=== PATIENT | male | born 1935 | race Caucasian/White ===

== ENCOUNTER 2021-11-30 13:23 | Inpatient (IN) | payer MEDICARE, OTHER ==
[~2021-11-30] VITALS: Ht 177.8 cm; Wt 79.4 kg
[~2021-11-30 13:23] MED LIST: ACETAMINOP650 MG/201 PEG; ARTIFICIAL TEAR15 ML OD; BASAGLAR K100 UNIT/1 SC; EXELON1 EAC2 TD; GLUCERNA 1.5 C237 ML PEG; LACTULOSE20 GM/30 M PO; LEVALBUTER1.25 MG/3 INH; LEVOFLOXACIN250 MG PEG; MAGNESIUM CITR296 ML PO; METOPROLOL TART25 MG PEG; MILK OF MA2400 MG/10 PO; MIRALAX17 GM PO; MULTIVITAMIN WI15 MG PEG; NOVOLOG100 UNITS1 SC; PREVACID30 M1 PEG; ROBITUSSIN COU118 M4 PEG
[2021-11-30] MEDS ORDERED: SODIUM CHLORIDE 0.9% 1000ML 1,000 ML IV STA (13:35)
[2021-11-30] MEDS ORDERED: ONDANSETRON HCL INJ 2MG/ML 2ML 2 MG/ML VIAL IV NR (13:35)
[2021-11-30 13:56] LABS: BASOPHILS # (AUTO) 0.1 (0.0-0.1); BASOPHILS % 0.6 % (0.0-1.0); EOSINOPHILS % 0.1 % (0.0-6.0); HEMATOCRIT 42.4 % (38.2-49.6); HEMOGLOBIN 12.8 g/dL (14.0-18.0); LYMPHOCYTES # (AUTO) 1.2 (1.0-3.2); LYMPHOCYTES % 9.8 % (18.0-39.1); MEAN CORPUSCULAR HEMOGLOBIN 27.1 pg (28-32); MEAN CORPUSCULAR HGB CONC 30.2 g/dL (31-35); MEAN CORPUSCULAR VOLUME 89.6 fL (81-99); MONOCYTES # (AUTO) 1.4 (0.2-0.8); MONOCYTES % 11.8 % (4.4-11.3); NEUTROPHILS % 76.1 % (38.7-80.0); PLATELET COUNT 282 x10e3/uL (140-360); RED BLOOD COUNT 4.73 x10e6/uL (4.3-5.7); RED CELL DISTRIBUTION WIDTH 14.5 % (11.7-14.4)
[2021-11-30] MEDS ORDERED: PIPERACILLIN/TAZOBACTAM 3.375 GM in SODIUM CHLORIDE 0.9% 50ML 50 ML IV STA (14:03)
[2021-11-30 14:10] LABS: INR 1.15; PROTHROMBIN TIME 15.5 seconds (11.9-14.5)
[2021-11-30] MEDS ORDERED: ACETAMINOPHEN 650 MG SUPP PR ONE ×2 (14:13→14:15)
[2021-11-30] MEDS ORDERED: ACETAMINOPHEN 325 MG SUPP PR ONE (14:15)
[2021-11-30 14:17] LABS: ALBUMIN/GLOBULIN RATIO 0.7 (0.8-2.0); ANION GAP 15.6 mmol/L (8-16); CALCIUM 9.3 mg/dL (8.4-10.2); CREATININE, SERUM 0.88 mg/dL (0.72-1.25); POTASSIUM 4.6 mmol/L (3.5-5.1)
[2021-11-30] MEDS ORDERED: SODIUM CHLORIDE 0.9% 1000ML 1,000 ML IV SCH (14:30)
[2021-11-30 14:32] LABS: CLARITY,URINE SL CLOUDY (CLEAR); COLOR,URINE STRAW (YELLOW); KETONES,URINE TRACE (NEGATIVE); LEUKOCYTE ESTERASE ,URINE MODERATE (NEGATIVE); NITRITE,URINE POSITIVE (NEGATIVE); PROTEIN,URINE DIPSTICK 2+ (NEGATIVE); URINE UROBILINOGEN 1 mg/dL (0.2 - 1)
[2021-11-30 14:38] LABS: B-TYPE NATRIURETIC PEPTIDE2 236.9 pg/mL (0-100)
[2021-11-30 14:40] LABS: CREATINE KINASE MB 0.7 ng/mL (0-5.0)
[2021-11-30 14:44] LABS: BACTERIA,URINE MODERATE /HPF; EPITHELIAL CELLS,URINE FEW /LPF; WBC,URINE (MAN) 21-50 /HPF (0-5)
[2021-11-30] MEDS ORDERED: IBUPROFEN 100 MG/5 ML SUSP PO ONE (15:15)
[2021-11-30] MEDS: SODIUM CHLORIDE 0.9% 1000ML 1,000 ML IV SCH (18:17)
[2021-11-30 20:56] VITALS: BP 92/60
[2021-11-30 21:00] VITALS: BP 92/60
[2021-11-30 21:27] LABS: CREATINE KINASE MB 2.9 ng/mL (0-5.0)
[2021-11-30] MEDS ORDERED: WATER (23:31)
[2021-12-01] VITALS (9 sets, daily range): BP systolic 96–124; BP diastolic 60–73
[2021-12-01] MEDS: SODIUM CHLORIDE 0.9% 1000ML 1,000 ML IV SCH ×2 (01:00→10:21)
[2021-12-01 02:11] LABS: CREATINE KINASE MB 2.8 ng/mL (0-5.0)
[2021-12-01 04:55] LABS: BASOPHILS % 0.4 % (0.0-1.0); EOSINOPHILS % 0.1 % (0.0-6.0); HEMOGLOBIN 12.5 g/dL (14.0-18.0); LYMPHOCYTES # (AUTO) 1.2 (1.0-3.2); MEAN CORPUSCULAR HEMOGLOBIN 27.4 pg (28-32); MEAN CORPUSCULAR HGB CONC 28.4 g/dL (31-35); MEAN CORPUSCULAR VOLUME 96.5 fL (81-99); MONOCYTES # (AUTO) 0.8 (0.2-0.8); MONOCYTES % 10.9 % (4.4-11.3); NEUTROPHILS # (AUTO) 5.5 (2.1-6.9); NEUTROPHILS % 71.8 % (38.7-80.0); PLATELET COUNT 179 x10e3/uL (140-360); RED BLOOD COUNT 4.56 x10e6/uL (4.3-5.7); RED CELL DISTRIBUTION WIDTH 14.6 % (11.7-14.4)
[2021-12-01 06:15] LABS: ALBUMIN 2.5 g/dL (3.5-5.0); ALBUMIN/GLOBULIN RATIO 0.6 (0.8-2.0); CALCIUM 8.5 mg/dL (8.4-10.2); CREATININE, SERUM 0.66 mg/dL (0.72-1.25)
[2021-12-01] MEDS ORDERED: GUAIFENESIN/DEXTROMETHORPHAN LIQD 5 ML UDC PEG PRN (09:45)
[2021-12-01] MEDS ORDERED: DEXTROSE 50% SYRINGE 50 ML IV PRN (09:45)
[2021-12-01] MEDS ORDERED: ACETAMINOPHEN 325 MG/10 ML UDC PEG PRN (09:45)
[2021-12-01] MEDS ORDERED: POLYETHYLENE GLYCOL 3350 17 GM PACK PO PRN (09:45)
[2021-12-01] MEDS ORDERED: MAGNESIUM HYDROXIDE 30 ML UDC PO PRN (09:45)
[2021-12-01] MEDS ORDERED: LACTULOSE SYRUP 20 GM/30 ML UDC PO PRN (09:45)
[2021-12-01] MEDS ORDERED: CITRATE OF MAGNESIA 300ML BOTTLE PO PRN (09:45)
[2021-12-01] MEDS: CEFTRIAXONE 2 GM in SODIUM CHLORIDE 0.9% 100 ML IV SCH (10:21)
[2021-12-01] MEDS: ZINC SULFATE 50 MG CAP PO SCH (10:21)
[2021-12-01] MEDS: DEXAMETHASONE SOD PHOS 10 MG/1 ML VIAL IV SCH (10:21)
[2021-12-01] MEDS: ASCORBIC ACID 500 MG TAB PO SCH ×2 (10:21→15:54)
[2021-12-01] MEDS: ENOXAPARIN SOD INJ 40 MG/0.4 ML SYR SC SCH ×2 (10:21→15:54)
[2021-12-01] MEDS: PANTOPRAZOLE SODIUM 40 MG SUSPDR.PKT PEG SCH (11:00)
[2021-12-01] MEDS: INSULIN LISPRO 100 UNIT/1 ML 3ML VIAL SQ SCH ×3 (11:30→20:57)
[2021-12-01 11:34] LABS: BASOPHILS % 0.2 % (0.0-1.0); HEMATOCRIT 37.3 % (38.2-49.6); HEMOGLOBIN 11.2 g/dL (14.0-18.0); LYMPHOCYTES # (AUTO) 0.8 (1.0-3.2); LYMPHOCYTES % 9.7 % (18.0-39.1); MEAN CORPUSCULAR HEMOGLOBIN 26.9 pg (28-32); MONOCYTES # (AUTO) 0.5 (0.2-0.8); MONOCYTES % 6.1 % (4.4-11.3); NEUTROPHILS # (AUTO) 7.2 (2.1-6.9); NEUTROPHILS % 83.4 % (38.7-80.0); PLATELET COUNT 201 x10e3/uL (140-360); RED BLOOD COUNT 4.16 x10e6/uL (4.3-5.7); RED CELL DISTRIBUTION WIDTH 14.6 % (11.7-14.4)
[2021-12-01] MEDS: METOPROLOL TARTRATE 25 MG TAB PEG SCH ×2 (11:43→15:54)
[2021-12-01 11:45] LABS: MEAN CORPUSCULAR VOLUME 89.7 fL (81-99)
[2021-12-01 12:07] LABS: ALBUMIN 2.4 g/dL (3.5-5.0); ALBUMIN/GLOBULIN RATIO 0.7 (0.8-2.0); ANION GAP 11.9 mmol/L (8-16); CALCIUM 8.2 mg/dL (8.4-10.2); CREATININE, SERUM 0.57 mg/dL (0.72-1.25); POTASSIUM 3.9 mmol/L (3.5-5.1)
[2021-12-01 12:43] LABS: CREATINE KINASE MB 1.6 ng/mL (0-5.0)
[2021-12-01] MEDS: ARTIFICIAL TEARS (OPTH) 15 ML BTL OD SCH (15:54)
[2021-12-01] MEDS: INSULIN GLARGINE 100 UNITS/ML VIAL SQ SCH (20:57)
[2021-12-01] MEDS ORDERED: [UNRECOGNIZED DRUG - OTHER] SC SCH (21:00)
[2021-12-01] MEDS ORDERED: INSULIN GLARGINE HUM REC ANLOG 30 UNIT SC SCH (21:00)
[2021-12-02] VITALS (7 sets, daily range): BP systolic 108–132; BP diastolic 62–72
[2021-12-02 05:12] LABS: BASOPHILS % 0.4 % (0.0-1.0); HEMATOCRIT 38.7 % (38.2-49.6); HEMOGLOBIN 11.6 g/dL (14.0-18.0); LYMPHOCYTES # (AUTO) 1.2 (1.0-3.2); LYMPHOCYTES % 15.9 % (18.0-39.1); MEAN CORPUSCULAR HEMOGLOBIN 27.1 pg (28-32); MEAN CORPUSCULAR VOLUME 90.4 fL (81-99); MONOCYTES # (AUTO) 0.6 (0.2-0.8); MONOCYTES % 8.2 % (4.4-11.3); NEUTROPHILS # (AUTO) 5.5 (2.1-6.9); NEUTROPHILS % 74.3 % (38.7-80.0); PLATELET COUNT 248 x10e3/uL (140-360); RED BLOOD COUNT 4.28 x10e6/uL (4.3-5.7); RED CELL DISTRIBUTION WIDTH 14.6 % (11.7-14.4)
[2021-12-02 05:40] LABS: ALBUMIN 2.4 g/dL (3.5-5.0); ALBUMIN/GLOBULIN RATIO 0.6 (0.8-2.0); ANION GAP 14.3 mmol/L (8-16); CALCIUM 8.3 mg/dL (8.4-10.2); CREATININE, SERUM 0.64 mg/dL (0.72-1.25); POTASSIUM 4.3 mmol/L (3.5-5.1)
[2021-12-02] MEDS: INSULIN LISPRO 100 UNIT/1 ML 3ML VIAL SQ SCH ×4 (08:00→21:03)
[2021-12-02] MEDS ORDERED: RIVASTIGMINE TD SCH (09:00)
[2021-12-02] MEDS: ARTIFICIAL TEARS (OPTH) 15 ML BTL OD SCH ×2 (09:45→17:00)
[2021-12-02] MEDS: CEFTRIAXONE 2 GM in SODIUM CHLORIDE 0.9% 100 ML IV SCH (09:45)
[2021-12-02] MEDS: DEXAMETHASONE SOD PHOS 10 MG/1 ML VIAL IV SCH (09:45)
[2021-12-02] MEDS: METOPROLOL TARTRATE 25 MG TAB PEG SCH ×2 (09:45→17:00)
[2021-12-02] MEDS: PANTOPRAZOLE SODIUM 40 MG SUSPDR.PKT PEG SCH (09:46)
[2021-12-02] MEDS: ASCORBIC ACID 500 MG TAB PO SCH ×2 (09:46→17:00)
[2021-12-02] MEDS: MULTIVITAMINS/MINERALS TAB PEG SCH (09:46)
[2021-12-02] MEDS: BALSAM PERU/CASTOR OIL 60 GM OINT...G. TP SCH (09:47)
[2021-12-02] MEDS: RIVASTIGMINE PATCH 4.6MG/24 HOURS PATCH TD SCH (09:47)
[2021-12-02] MEDS: ENOXAPARIN SOD INJ 40 MG/0.4 ML SYR SC SCH ×2 (09:47→17:00)
[2021-12-02] MEDS: ZINC SULFATE 50 MG CAP PO SCH (09:47)
[2021-12-02] MEDS ORDERED: Vancomycin IV 1 GM in SODIUM CHLORIDE 0.9% 250ML 250 ML IV ONE (12:00)
[2021-12-02] MEDS: INSULIN GLARGINE 100 UNITS/ML VIAL SQ SCH (21:03)
[2021-12-03] VITALS (9 sets, daily range): BP systolic 102–133; BP diastolic 56–81
[2021-12-03] MEDS: INSULIN LISPRO 100 UNIT/1 ML 3ML VIAL SQ SCH ×4 (08:30→21:29)
[2021-12-03] MEDS: ARTIFICIAL TEARS (OPTH) 15 ML BTL OD SCH ×2 (09:17→17:43)
[2021-12-03] MEDS: DEXAMETHASONE SOD PHOS 10 MG/1 ML VIAL IV SCH (09:17)
[2021-12-03] MEDS: CEFTRIAXONE 2 GM in SODIUM CHLORIDE 0.9% 100 ML IV SCH (09:17)
[2021-12-03] MEDS: ZINC SULFATE 50 MG CAP PO SCH (09:19)
[2021-12-03] MEDS: METOPROLOL TARTRATE 25 MG TAB PEG SCH ×2 (09:19→17:43)
[2021-12-03] MEDS: RIVASTIGMINE PATCH 4.6MG/24 HOURS PATCH TD SCH (09:19)
[2021-12-03] MEDS: BALSAM PERU/CASTOR OIL 60 GM OINT...G. TP SCH (09:19)
[2021-12-03] MEDS: ENOXAPARIN SOD INJ 40 MG/0.4 ML SYR SC SCH ×2 (09:19→17:43)
[2021-12-03] MEDS: PANTOPRAZOLE SODIUM 40 MG SUSPDR.PKT PEG SCH (09:19)
[2021-12-03] MEDS: MULTIVITAMINS/MINERALS TAB PEG SCH (09:19)
[2021-12-03] MEDS: ASCORBIC ACID 500 MG TAB PO SCH ×2 (09:19→17:43)
[2021-12-03 10:19] LABS: BASOPHILS % 0.3 % (0.0-1.0); EOSINOPHILS % 0.3 % (0.0-6.0); HEMATOCRIT 37.9 % (38.2-49.6); HEMOGLOBIN 11.5 g/dL (14.0-18.0); LYMPHOCYTES % 15.4 % (18.0-39.1); MEAN CORPUSCULAR HEMOGLOBIN 27.3 pg (28-32); MEAN CORPUSCULAR HGB CONC 30.3 g/dL (31-35); MEAN CORPUSCULAR VOLUME 89.8 fL (81-99); MONOCYTES # (AUTO) 0.4 (0.2-0.8); MONOCYTES % 6.2 % (4.4-11.3); NEUTROPHILS # (AUTO) 4.8 (2.1-6.9); NEUTROPHILS % 76.8 % (38.7-80.0); PLATELET COUNT 253 x10e3/uL (140-360); RED BLOOD COUNT 4.22 x10e6/uL (4.3-5.7); RED CELL DISTRIBUTION WIDTH 14.5 % (11.7-14.4)
[2021-12-03 10:53] LABS: ALBUMIN 2.5 g/dL (3.5-5.0); ALBUMIN/GLOBULIN RATIO 0.7 (0.8-2.0); ANION GAP 13.1 mmol/L (8-16); CALCIUM 8.1 mg/dL (8.4-10.2); CREATININE, SERUM 0.65 mg/dL (0.72-1.25); POTASSIUM 4.1 mmol/L (3.5-5.1)
[2021-12-03] MEDS: AZITHROMYCIN 250 MG TAB PO SCH (13:20)
[2021-12-03] MEDS: INSULIN GLARGINE 100 UNITS/ML VIAL SQ SCH (21:30)
[2021-12-04] VITALS: BP 100/74
[2021-12-04 04:00] VITALS: BP 140/74
[2021-12-04 06:29] LABS: BASOPHILS % 0.2 % (0.0-1.0); EOSINOPHILS % 0.5 % (0.0-6.0); HEMATOCRIT 35.7 % (38.2-49.6); HEMOGLOBIN 11.2 g/dL (14.0-18.0); LYMPHOCYTES # (AUTO) 1.2 (1.0-3.2); LYMPHOCYTES % 29.2 % (18.0-39.1); MEAN CORPUSCULAR HEMOGLOBIN 27.7 pg (28-32); MEAN CORPUSCULAR HGB CONC 31.4 g/dL (31-35); MEAN CORPUSCULAR VOLUME 88.1 fL (81-99); MONOCYTES # (AUTO) 0.6 (0.2-0.8); MONOCYTES % 13.3 % (4.4-11.3); NEUTROPHILS # (AUTO) 2.3 (2.1-6.9); NEUTROPHILS % 56.1 % (38.7-80.0); PLATELET COUNT 233 x10e3/uL (140-360); RED BLOOD COUNT 4.05 x10e6/uL (4.3-5.7); RED CELL DISTRIBUTION WIDTH 14.3 % (11.7-14.4)
[2021-12-04 07:03] LABS: ALBUMIN 2.5 g/dL (3.5-5.0); ALBUMIN/GLOBULIN RATIO 0.8 (0.8-2.0); CALCIUM 8.4 mg/dL (8.4-10.2); CREATININE, SERUM 0.55 mg/dL (0.72-1.25); POTASSIUM 4.1 mmol/L (3.5-5.1)
[2021-12-04 07:13] LABS: ANION GAP 12.1 mmol/L (8-16)
[2021-12-04] MEDS: INSULIN LISPRO 100 UNIT/1 ML 3ML VIAL SQ SCH ×2 (07:30→12:30)
[2021-12-04 08:24] VITALS: BP 117/69
[2021-12-04 08:27] VITALS: BP 117/69
[2021-12-04] MEDS: ARTIFICIAL TEARS (OPTH) 15 ML BTL OD SCH (09:00)
[2021-12-04 11:25] VITALS: BP 148/67
[2021-12-04] MEDS: DEXAMETHASONE SOD PHOS 10 MG/1 ML VIAL IV SCH (12:49)
[2021-12-04] MEDS: CEFTRIAXONE 2 GM in SODIUM CHLORIDE 0.9% 100 ML IV SCH (12:49)
[2021-12-04] MEDS: ASCORBIC ACID 500 MG TAB PO SCH (12:49)
[2021-12-04] MEDS: AZITHROMYCIN 250 MG TAB PO SCH (12:49)
[2021-12-04] MEDS: METOPROLOL TARTRATE 25 MG TAB PEG SCH (12:50)
[2021-12-04] MEDS: PANTOPRAZOLE SODIUM 40 MG SUSPDR.PKT PEG SCH (12:50)
[2021-12-04] MEDS: ENOXAPARIN SOD INJ 40 MG/0.4 ML SYR SC SCH (12:50)
[2021-12-04] MEDS: BALSAM PERU/CASTOR OIL 60 GM OINT...G. TP SCH (12:50)
[2021-12-04] MEDS: RIVASTIGMINE PATCH 4.6MG/24 HOURS PATCH TD SCH (12:50)
[2021-12-04] MEDS: ZINC SULFATE 50 MG CAP PO SCH (12:50)
[2021-12-04] MEDS: MULTIVITAMINS/MINERALS TAB PEG SCH (12:50)
== END 2021-12-04 16:15 | DRG 871 ==
LOC: ER 13:34 → ERHOLD 17:05 → IMCU 20:11
PROVIDERS: ADMIT Family Medicine; ATTEND Family Medicine
PROC: 3E0333Z Introduction of Anti-inflammatory into Peripheral Vein, Percutaneous Approach (ICD-10-PCS; principal; 2021-12-01)
DX: A41.89 Other specified sepsis (principal); U07.1 COVID-19; J12.82 Pneumonia due to coronavirus disease 2019; G93.41 Metabolic encephalopathy; J96.00 Acute respiratory failure, unspecified whether with hypoxia or hypercapnia; I69.359 Hemiplegia and hemiparesis following cerebral infarction affecting unspecified side; R65.20 Severe sepsis without septic shock; E11.9 Type 2 diabetes mellitus without complications; I10 Essential (primary) hypertension; G30.9 Alzheimer's disease, unspecified; F02.80 Dementia in other diseases classified elsewhere, unspecified severity, without behavioral disturbance, psychotic disturbance, mood disturbance, and anxiety; R62.7 Adult failure to thrive; Z74.01 Bed confinement status; Z93.1 Gastrostomy status; Z66 Do not resuscitate; Z68.25 Body mass index [BMI] 25.0-25.9, adult; Z22.322 Carrier or suspected carrier of Methicillin resistant Staphylococcus aureus
CPT/HCPCS: 36415; 70450; 71045; 80053; 81001; 82550; 82553; 82948; 83605; 83880; 84484; 85025; 85610; 85730; 87040; 87086; 87186; 93005; 94799; 99251; 99284; J0456; J0696; J1100; J1650; J1815; J2405; J2543; J3370; J7030; J7050; U0002